=== PATIENT | female | born 1980 | race African-American/Black ===

== ENCOUNTER 2021-11-17 16:56 | Emergency (ER) | payer BC ==
[~2021-11-17] VITALS: Ht 157.5 cm; Wt 91.2 kg
[2021-11-17] MEDS ORDERED: CIPRO500 MG PO (19:14)
== END 2021-11-17 19:27 | disposition home or self-care (01) ==
LOC: ER 16:56
DX: S81.812A Laceration without foreign body, left lower leg, initial encounter (principal); W18.39XA Other fall on same level, initial encounter; Y93.9 Activity, unspecified; Y92.9 Unspecified place or not applicable; Y99.9 Unspecified external cause status